=== PATIENT | female | born 1960 | race Caucasian/White ===

== ENCOUNTER 2019-10-07 10:50 | Observation (INO) ==
[2019-10-07] MEDS ORDERED: methylPREDNISolone 125 MG/2 ML VIAL IVP ONE (11:13)
[2019-10-07] MEDS ORDERED: Ipratropium/Albuterol Neb 3 ML IH ONE (11:13)
[2019-10-07] MEDS ORDERED: Isovue-370 500 ML BOTTLE IVP ONE (11:13)
[2019-10-07] MEDS ORDERED: levoFLOXacin 750 MG/150 ML 750 MG/150 ML BAG IVPB ONE (11:13)
[2019-10-07] MEDS ORDERED: 0.9 % Sodium Chloride 1,000 ML IVC ONE ×3 (12:00→17:00)
[2019-10-07 12:02] LABS: Hematocrit 40.3 % (35.3-44.9); Hemoglobin 12.9 g/dL (11.5-15.4); Mean Corpuscular Hemoglobin 28.7 pg (28.0-33.3); Mean Corpuscular Volume 89.6 fL (83.0-100.0); Mean Platelet Volume 10.2 fL (9.4-12.4); Platelet Count 222 K/mcL (140-400); Red Cell Distribution Width 15.5 % (11.5-14.5); White Blood Count 11.8 K/mcL (4.3-11.1)
[2019-10-07 12:08] LABS: INR 1.5
[2019-10-07 12:11] LABS: Activated Partial Thrombo Time 30.9 Seconds (26.0-36.0)
[2019-10-07 12:22] LABS: Calcium 9.3 mg/dL (8.6-10.3); Potassium 3.7 mEq/L (3.5-5.1)
[2019-10-07 12:24] LABS: Lymphocytes # 1.2 K/mcL (0.6-4.6); Monocytes # 0.2 K/mcL (0.0-1.3); Neutrophils # 10.4 K/mcL (1.6-8.9)
[2019-10-07 12:26] LABS: Anisocytosis 1+ (Not Present); Platelet Estimate Normal (Normal)
[2019-10-07 12:31] LABS: Bilirubin,Urine Small (Negative); Blood,Urine Negative (Negative); Clarity,Urine Cloudy (Clear); Color,Urine Dark Yellow (Yellow); Glucose,Urine (UA) Normal (Normal); Ketones,Urine Negative (Negative); Leukocyte Esterase,Urine Negative (Negative); Nitrite,Urine Negative (Negative); Protein,Urine 30 mg/dL (Neg-Trace); Specific Gravity,Urine 1.022 (1.010-1.025); Urobilinogen,Urine Normal (Normal)
[2019-10-07 12:33] LABS: Bacteria,Urine Few per hpf (None-Few); Hyaline Casts,Urine None Seen per lpf (None-Few); RBC,Urine 0-3 per hpf (0-3); Squamous Epithelial Cell,Urine Many per lpf (None-Few)
[2019-10-07 12:39] LABS: Magnesium 1.8 mg/dL (1.6-2.6)
[2019-10-07] MEDS ORDERED: *HR* FentaNYL (PF) 100 MCG/2 ML VIAL IVP STA (12:41)
[2019-10-07 12:42] LABS: Troponin I 0.03 ng/mL (< 0.04)
[2019-10-07 12:44] LABS: Amorphous Sediment,Urine Few per hpf (Few)
[2019-10-07 12:45] LABS: WBC,Urine 0-3 per hpf (0-3)
[2019-10-07] MEDS ORDERED: Ondansetron 4 MG/2 ML VIAL IVP PRN (14:54)
[2019-10-07] MEDS ORDERED: Naloxone 0.4 MG/ML INJ IVP PRN (14:54)
[2019-10-07] MEDS: ALPRAZolam 0.5 MG TABLET PO SCH ×2 (17:00→20:08)
[2019-10-07] MEDS: cefTRIAXone 1,000 MG in Water for inj. (sterile) 10 ML IVP SCH (17:02)
[2019-10-07] MEDS: 0.9 % Sodium Chloride 1,000 ML IVC SCH (18:17)
[2019-10-07] MEDS: Azithromycin 500 MG in 0.9 % Sodium Chloride 250 ML IVPB SCH (18:21)
[2019-10-07] MEDS ORDERED: Budesonide Neb 0.5 MG/2 ML IH ONE (19:47)
[2019-10-07] MEDS: Budesonide Neb 0.5 MG/2 ML IH SCH (19:56)
[2019-10-07] MEDS: *HR* Heparin 5,000 UNIT/ML VIAL SQ SCH (20:06)
[2019-10-07] MEDS: Gabapentin 100 MG CAPSULE PO SCH (20:07)
[2019-10-07] MEDS: Famotidine 20 MG TABLET PO SCH (20:07)
[2019-10-07] MEDS: Carisoprodol 350 MG TABLET PO SCH (20:56)
[2019-10-07] MEDS ORDERED: Mirtazapine 15 MG TABLET PO SCH (21:00)
[2019-10-07] MEDS: Acetaminophen 325 MG TABLET PO PRN (21:16)
[2019-10-08 04:40] LABS: Basophils % 0.1 %; Hematocrit 32.6 % (35.3-44.9); Immature Granulocytes % 1.2 % (0-4); Lymphocytes % 12.1 %; Mean Corpuscular HGB Conc 31.6 g/dL (31.6-35.5); Mean Corpuscular Hemoglobin 28.4 pg (28.0-33.3); Mean Corpuscular Volume 89.8 fL (83.0-100.0); Mean Platelet Volume 10.8 fL (9.4-12.4); Monocytes # 0.7 K/mcL (0.0-1.3); Monocytes % 7.8 %; Platelet Count 181 K/mcL (140-400); Red Blood Count 3.63 M/mcL (3.82-4.97); Red Cell Distribution Width 15.7 % (11.5-14.5); Segmented Neutrophils % 78.8 %; White Blood Count 8.3 K/mcL (4.3-11.1)
[2019-10-08] MEDS: Ipratropium/Albuterol Neb 3 ML IH PRN ×2 (04:55→07:04)
[2019-10-08] MEDS: 0.9 % Sodium Chloride 1,000 ML IVC SCH (04:55)
[2019-10-08] MEDS: *HR* Heparin 5,000 UNIT/ML VIAL SQ SCH ×2 (04:55→12:54)
[2019-10-08 05:01] LABS: Calcium 8.8 mg/dL (8.6-10.3); Potassium 4.2 mEq/L (3.5-5.1)
[2019-10-08 05:02] LABS: Hemoglobin 10.3 g/dL (11.5-15.4); Neutrophils # 6.5 K/mcL (1.6-8.9)
[2019-10-08] MEDS: Budesonide Neb 0.5 MG/2 ML IH SCH ×2 (07:04→22:22)
[2019-10-08] MEDS ORDERED: Aspirin Enteric Coated 81 MG Tablet PO SCH (09:00)
[2019-10-08] MEDS: Carisoprodol 350 MG TABLET PO SCH ×2 (10:02→17:20)
[2019-10-08] MEDS: ALPRAZolam 0.5 MG TABLET PO SCH ×3 (10:02→17:20)
[2019-10-08] MEDS: Gabapentin 100 MG CAPSULE PO SCH ×2 (10:02→17:20)
[2019-10-08] MEDS: Famotidine 20 MG TABLET PO SCH (10:02)
[2019-10-08] MEDS: cefTRIAXone 1,000 MG in Water for inj. (sterile) 10 ML IVP SCH (10:02)
[2019-10-08 10:48] LABS: Acinetobacter baumannii by PCR Not Detected (Not Detect); Candida albicans by PCR Not Detected (Not Detect); Candida glabrata by PCR Not Detected (Not Detect); Candida krusei by PCR Not Detected (Not Detect); Enterobacter cloacae Cmplx PCR Not Detected (Not Detect); Enterobacteriaceae by PCR Not Detected (Not Detect); Enterococcus by PCR Not Detected (Not Detect); Escherichia coli by PCR Not Detected (Not Detect); Klebsiella oxytoca by PCR Not Detected (Not Detect); Klebsiella pneumoniae by PCR Not Detected (Not Detect); Proteus by PCR Not Detected (Not Detect); Pseudomonas aeruginosa by PCR Not Detected (Not Detect); Serratia marcescens by PCR Not Detected (Not Detect); Staphylococcus aureus by PCR Not Detected (Not Detect); Staphylococcus by PCR Not Detected (Not Detect); Streptococcus agalactiae(B)PCR Not Detected (Not Detect); Streptococcus by PCR Not Detected (Not Detect); Streptococcus pneumoniae PCR Not Detected (Not Detect); Streptococcus pyogenes (A) PCR Not Detected (Not Detect); blaKPC Carbapenem-Resist Gene Not Detected (Not Detect); mecA Methicillin-Resist Gene Not Detected (Not Detect); vanA/B Vancomycin-Resist Genes Not Detected (Not Detect)
[2019-10-08 10:49] LABS: Candida parapsilosis by PCR Not Detected (Not Detect); Candida tropicalis by PCR Not Detected (Not Detect)
[2019-10-08] MEDS: Acetaminophen 325 MG TABLET PO PRN (12:53)
[2019-10-08] MEDS: MethylPREDNISolone 40 MG/ML VIAL IVP SCH ×2 (17:19→17:36)
[2019-10-08] MEDS: Azithromycin 500 MG in 0.9 % Sodium Chloride 250 ML IVPB SCH (17:20)
[2019-10-08] MEDS ORDERED: cefTRIAXone 1,000 MG in Water for inj. (sterile) 10 ML IVPB ONE (17:54)
[2019-10-08] MEDS ORDERED: Isovue-370 500 ML BOTTLE IVP ONE ×2 (19:01→19:02)
[2019-10-08] MEDS ORDERED: *HR* Acetylcysteine 20% 600 MG/3 ML ORAL SYRINGE PO SCH (19:45)
[2019-10-08 19:49] LABS: ABG Base Excess -2 mEq/L (-2 to 3); ABG HCO3 25 mEq/L (21-27); ABG Oxygen Saturation 96 % (95-98); ABG PCO2 49 mmHg (35-45); ABG PH 7.31 pH Units (7.32-7.45); ABG PO2 87 mmHg (85-104); ABG TCO2 26 mEq/L (20-26); Blood Gas Modality ASSIST CONTROL
[2019-10-08 23:58] VITALS: BP 126/51
[2019-10-09] MEDS ORDERED: cefTRIAXone 2,000 MG in Water for inj. (sterile) 20 ML IVP SCH (09:00)
[2019-10-09] MEDS ORDERED: Famotidine 20 MG TABLET PO SCH (09:00)
== END 2019-10-08 20:40 | disposition critical access hospital (66) ==
LOC: EMEROOARM 10:50 → 3ANU 10:50 → SUATTDRO 14:38 → 3ANU 15:21
PROVIDERS: ADMIT Pharmacist; ATTEND Pharmacist

== ENCOUNTER 2021-01-29 22:59 | Inpatient (IN) ==
[2021-01-30] MEDS ORDERED: Ipratropium/Albuterol Neb 3 ML IH ONE (00:21)
[2021-01-30] MEDS ORDERED: methylPREDNISolone 125 MG/2 ML VIAL IVP ONE (00:21)
[2021-01-30 01:33] LABS: Basophils % 0.2 %; Hematocrit 45.5 % (35.3-44.9); Hemoglobin 14.1 g/dL (11.5-15.4); Immature Granulocytes % 0.6 % (0-4); Lymphocytes # 2.2 K/mcL (0.6-4.6); Lymphocytes % 13.9 %; Mean Corpuscular Hemoglobin 27.3 pg (28.0-33.3); Mean Corpuscular Volume 88.2 fL (83.0-100.0); Mean Platelet Volume 10.3 fL (9.4-12.4); Monocytes # 0.5 K/mcL (0.0-1.3); Monocytes % 3.1 %; Neutrophils # 13.2 K/mcL (1.6-8.9); Platelet Count 265 K/mcL (140-400); Red Blood Count 5.16 M/mcL (3.82-4.97); Red Cell Distribution Width 15.6 % (11.5-14.5); Segmented Neutrophils % 82.2 %; White Blood Count 16.1 K/mcL (4.3-11.1)
[2021-01-30 02:52] LABS: Calcium 9.1 mg/dL (8.6-10.3); Troponin I 0.03 ng/mL (< 0.04)
[2021-01-30] MEDS ORDERED: Isovue-370 500 ML BOTTLE IVP ONE (03:20)
[2021-01-30 05:11] LABS: Adenovirus Not Detected (Not Detect); Bordetella Pertussis Not Detected (Not Detect); Chlamydophila pneumoniae Not Detected (Not Detect); Coronavirus 229E Not Detected (Not Detect); Coronavirus HKU1 Not Detected (Not Detect); Coronavirus NL63 Not Detected (Not Detect); Coronavirus OC43 Not Detected (Not Detect); Human Metapneumovirus Not Detected (Not Detect); Human Rhinovirus/Enterovirus Not Detected (Not Detect); Influenza A Subtype 2009 H1 Not Detected (Not Detect); Influenza B Not Detected (Not Detect); Mycoplasma pneumoniae Not Detected (Not Detect); Parainfluenza Virus 1 Not Detected (Not Detect); Parainfluenza Virus 2 Not Detected (Not Detect); Parainfluenza Virus 3 Not Detected (Not Detect); Parainfluenza Virus 4 Not Detected (Not Detect); Respiratory Syncytial Virus Not Detected (Not Detect); SARS-CoV-2 Not Detected (Not Detect)
[2021-01-30] MEDS ORDERED: cefTRIAXone 1,000 MG in 0.9 % Sodium Chloride Mini Bag 100 ML IVPB ONE (07:13)
[2021-01-30] MEDS ORDERED: Azithromycin 500 MG in 0.9 % Sodium Chloride 250 ML IVPB ONE (07:13)
[2021-01-30] MEDS ORDERED: Ondansetron 4 MG/2 ML VIAL IVP PRN (09:00)
[2021-01-30] MEDS ORDERED: Naloxone 0.4 MG/ML INJ IVP PRN (09:00)
[2021-01-30] MEDS ORDERED: 0.9 % Sodium Chloride 1,000 ML IVC SCH (09:15)
[2021-01-30] MEDS ORDERED: *HR* Enoxaparin 150 MG/ML SYRINGE SQ SCH (09:30)
[2021-01-30 09:33] LABS: Prothrombin Time 11.4 Seconds (9.4-12.1)
[2021-01-30] MEDS: Albuterol 2.5 MG/3 ML NEBULIZER IH SCH ×4 (11:17→23:28)
[2021-01-30] MEDS ORDERED: Famotidine 20 MG TABLET PO PRN (13:58)
[2021-01-30] MEDS ORDERED: Sennosides 8.6 MG TABLET PO PRN (13:58)
[2021-01-30] MEDS: Aspirin Enteric Coated 81 MG Tablet PO SCH (15:21)
[2021-01-30] MEDS: Gabapentin 100 MG CAPSULE PO SCH ×2 (15:21→20:52)
[2021-01-30] MEDS: QUEtiapine Fumarate 25 MG TABLET PO SCH (20:52)
[2021-01-30] MEDS: Primidone 50 MG TABLET PO SCH (20:52)
[2021-01-30] MEDS: Mirtazapine 15 MG TABLET PO SCH (20:52)
[2021-01-30] MEDS: Melatonin 3 MG TABLET PO SCH (20:53)
[2021-01-30] MEDS: Apixaban 5 MG TABLET PO SCH (21:07)
[2021-01-31 02:15] LABS: White Blood Count 17.9 K/mcL (4.3-11.1)
[2021-01-31 02:16] LABS: Basophils % 0.2 %; Hematocrit 38.4 % (35.3-44.9); Immature Granulocytes % 0.6 % (0-4); Lymphocytes % 11.4 %; Mean Corpuscular HGB Conc 30.7 g/dL (31.6-35.5); Mean Corpuscular Hemoglobin 26.9 pg (28.0-33.3); Mean Corpuscular Volume 87.7 fL (83.0-100.0); Mean Platelet Volume 9.8 fL (9.4-12.4); Monocytes # 0.8 K/mcL (0.0-1.3); Monocytes % 4.6 %; Neutrophils # 14.9 K/mcL (1.6-8.9); Platelet Count 209 K/mcL (140-400); Red Blood Count 4.38 M/mcL (3.82-4.97); Red Cell Distribution Width 15.7 % (11.5-14.5); Segmented Neutrophils % 83.2 %
[2021-01-31 02:23] LABS: Hemoglobin 11.8 g/dL (11.5-15.4)
[2021-01-31 02:35] LABS: Calcium 8.9 mg/dL (8.6-10.3); Potassium 4.9 mEq/L (3.5-5.1)
[2021-01-31] MEDS: Albuterol 2.5 MG/3 ML NEBULIZER IH SCH ×2 (03:55→07:22)
[2021-01-31] MEDS ORDERED: Ipratropium/Albuterol Neb 3 ML IH PRN (08:10)
[2021-01-31] MEDS ORDERED: Benzonatate 100 MG CAPSULE PO PRN (08:10)
[2021-01-31] MEDS ORDERED: MethylPREDNISolone 40 MG/ML VIAL IVP SCH (09:00)
[2021-01-31] MEDS: Apixaban 5 MG TABLET PO SCH ×2 (09:02→20:28)
[2021-01-31] MEDS: Aspirin Enteric Coated 81 MG Tablet PO SCH (09:02)
[2021-01-31] MEDS: Doxycycline 100 MG CAPSULE PO SCH ×2 (09:02→20:28)
[2021-01-31] MEDS: Gabapentin 100 MG CAPSULE PO SCH ×3 (09:03→20:28)
[2021-01-31] MEDS: Multivit/Ca/Min/Fe/FA 1 TAB TABLET PO SCH (09:03)
[2021-01-31] MEDS: cefTRIAXone 1,000 MG in Water for inj. (sterile) 10 ML IVP SCH (09:10)
[2021-01-31] MEDS ORDERED: Ipratropium/Albuterol Neb 3 ML IH ONE (09:18)
[2021-01-31] MEDS ORDERED: methylPREDNISolone 125 MG/2 ML VIAL IVP ONE (09:19)
[2021-01-31] MEDS ORDERED: Levalbuterol Neb 1.25 MG/3 ML IH ONE (09:28)
[2021-01-31] MEDS ORDERED: Ipratropium/Albuterol Neb 3 ML IH SCH ×2 (09:30→10:00)
[2021-01-31 09:32] LABS: ABG Base Excess 0 mEq/L (-2 to 3); ABG HCO3 30 mEq/L (21-27); ABG Oxygen Saturation 96 % (95-98); ABG PCO2 74 mmHg (35-45); ABG PH 7.22 pH Units (7.32-7.45); ABG PO2 98 mmHg (85-104); ABG TCO2 32 mEq/L (20-26)
[2021-01-31] MEDS ORDERED: Levalbuterol Neb 1.25 MG/3 ML ONE (09:35)
[2021-01-31 09:50] LABS: Hemoglobin 13.8 g/dL (11.5-15.4)
[2021-01-31] MEDS ORDERED: Azithromycin 500 MG in 0.9 % Sodium Chloride 250 ML IVPB SCH (10:00)
[2021-01-31 10:07] LABS: Magnesium 2.1 mg/dL (1.6-2.6)
[2021-01-31 10:08] LABS: Troponin I 0.03 ng/mL (< 0.04)
[2021-01-31] MEDS: Furosemide 20 MG/2 ML VIAL IVP SCH (10:31)
[2021-01-31] MEDS: Ipratropium Neb 0.5 MG NEBULIZER IH SCH ×4 (11:14→23:03)
[2021-01-31] MEDS: Budesonide/Formoterol 160/4.5 1 PUFF INH IH SCH ×2 (11:14→20:03)
[2021-01-31] MEDS: Levalbuterol Neb 1.25 MG/3 ML IH SCH ×4 (11:14→23:04)
[2021-01-31 11:47] LABS: ABG Base Excess 0 mEq/L (-2 to 3); ABG HCO3 28 mEq/L (21-27); ABG Oxygen Saturation 96 % (95-98); ABG PCO2 56 mmHg (35-45); ABG PO2 89 mmHg (85-104); ABG TCO2 29 mEq/L (20-26)
[2021-01-31] MEDS ORDERED: methylPREDNISolone 125 MG/2 ML VIAL IVP SCH (12:00)
[2021-01-31] MEDS ORDERED: Acetaminophen 325 MG TABLET PO PRN (12:56)
[2021-01-31] MEDS ORDERED: Perflutren Lipid Microsphere 1.3 ML in 0.9 % Sodium Chloride 8.7 ML IVP PRN (15:41)
[2021-01-31] MEDS ORDERED: Saline Nasal Spray 44 ML BOTTLE NS PRN (15:50)
[2021-01-31] MEDS: Acetylcysteine 10% 2 ML INHSOL IH SCH ×2 (16:34→23:04)
[2021-01-31] MEDS: Azithromycin 250 MG TABLET PO SCH (17:31)
[2021-01-31] MEDS: methylPREDNISolone 125 MG/2 ML VIAL IVP SCH (17:33)
[2021-01-31 18:29] LABS: Bilirubin,Urine Negative (Negative); Blood,Urine Negative (Negative); Clarity,Urine Clear (Clear); Color,Urine Colorless (Yellow); Glucose,Urine (UA) Normal (Normal); Ketones,Urine Negative (Negative); Leukocyte Esterase,Urine Negative (Negative); Nitrite,Urine Negative (Negative); Protein,Urine Negative (Neg-Trace); Specific Gravity,Urine 1.014 (1.010-1.025); Urobilinogen,Urine Normal (Normal)
[2021-01-31] MEDS: Melatonin 3 MG TABLET PO SCH (20:27)
[2021-01-31] MEDS: Sennosides/Docusate Sodium TABLET PO SCH (20:28)
[2021-01-31 20:29] LABS: Chol/HDL Ratio 2.3 (0-4.9)
[2021-01-31] MEDS: Mirtazapine 15 MG TABLET PO SCH (20:29)
[2021-01-31] MEDS: Primidone 50 MG TABLET PO SCH (20:29)
[2021-01-31] MEDS: QUEtiapine Fumarate 25 MG TABLET PO SCH (20:29)
[2021-01-31] MEDS: Artificial Tears SOLN 15 ML BOTTLE BOTH EYES SCH (20:30)
[2021-01-31 20:43] LABS: Thyroid Stimulating Hormone 0.361 mcIU/mL (0.340-5.600)
[2021-01-31 21:11] LABS: Estimated Average Glucose 131 mg/dl; Hemoglobin A1C 6.2 %
[2021-02-01] MEDS: methylPREDNISolone 125 MG/2 ML VIAL IVP SCH ×2 (00:12→08:58)
[2021-02-01] MEDS: Levalbuterol Neb 1.25 MG/3 ML IH SCH ×6 (03:32→23:02)
[2021-02-01] MEDS: Ipratropium Neb 0.5 MG NEBULIZER IH SCH ×6 (03:32→23:02)
[2021-02-01 06:21] LABS: Basophils % 0.1 %; Hematocrit 38.2 % (35.3-44.9); Hemoglobin 11.7 g/dL (11.5-15.4); Immature Granulocytes % 0.6 % (0-4); Mean Corpuscular HGB Conc 30.6 g/dL (31.6-35.5); Mean Corpuscular Hemoglobin 26.7 pg (28.0-33.3); Mean Platelet Volume 10.1 fL (9.4-12.4); Monocytes # 0.3 K/mcL (0.0-1.3); Neutrophils # 11.1 K/mcL (1.6-8.9); Platelet Count 205 K/mcL (140-400); Red Blood Count 4.39 M/mcL (3.82-4.97); Red Cell Distribution Width 15.9 % (11.5-14.5); Segmented Neutrophils % 89.3 %; White Blood Count 12.5 K/mcL (4.3-11.1)
[2021-02-01 06:35] LABS: Albumin 3.7 g/dL (3.5-5.7); Albumin/Globulin Ratio 1.5 (1.1-2.2); Bilirubin,Total 0.4 mg/dL (0.3-1.0); Globulin 2.5 g/dL (2.4-3.5); Magnesium 2.2 mg/dL (1.6-2.6); Phosphorous 3.9 mg/dL (2.7-4.5); Potassium 4.7 mEq/L (3.5-5.1); Total Protein 6.2 g/dL (6.4-8.9)
[2021-02-01] MEDS: Acetylcysteine 10% 2 ML INHSOL IH SCH ×3 (07:30→23:02)
[2021-02-01] MEDS: Budesonide/Formoterol 160/4.5 1 PUFF INH IH SCH ×2 (07:30→19:55)
[2021-02-01] MEDS: Artificial Tears SOLN 15 ML BOTTLE BOTH EYES SCH ×2 (09:01→20:38)
[2021-02-01] MEDS: Aspirin Enteric Coated 81 MG Tablet PO SCH (09:01)
[2021-02-01] MEDS: Gabapentin 100 MG CAPSULE PO SCH ×3 (09:02→20:37)
[2021-02-01] MEDS: Apixaban 5 MG TABLET PO SCH ×2 (09:02→20:37)
[2021-02-01] MEDS: Doxycycline 100 MG CAPSULE PO SCH ×2 (09:02→20:36)
[2021-02-01] MEDS: Furosemide 20 MG/2 ML VIAL IVP SCH (09:02)
[2021-02-01] MEDS: Multivit/Ca/Min/Fe/FA 1 TAB TABLET PO SCH (09:03)
[2021-02-01] MEDS: Azithromycin 250 MG TABLET PO SCH (09:03)
[2021-02-01] MEDS: Sennosides/Docusate Sodium TABLET PO SCH ×2 (09:03→20:35)
[2021-02-01] MEDS: cefTRIAXone 1,000 MG in Water for inj. (sterile) 10 ML IVP SCH (09:10)
[2021-02-01 15:10] LABS: Hematocrit 39.4 % (35.3-44.9); Hemoglobin 12.4 g/dL (11.5-15.4)
[2021-02-01] MEDS: MethylPREDNISolone 40 MG/ML VIAL IVP SCH ×2 (15:11→23:07)
[2021-02-01] MEDS: Melatonin 3 MG TABLET PO SCH (20:35)
[2021-02-01] MEDS: QUEtiapine Fumarate 25 MG TABLET PO SCH (20:36)
[2021-02-01] MEDS: Primidone 50 MG TABLET PO SCH (20:36)
[2021-02-01] MEDS: Mirtazapine 15 MG TABLET PO SCH (20:36)
[2021-02-02 01:33] LABS: Basophils % 0.1 %; Hematocrit 37.8 % (35.3-44.9); Hemoglobin 11.8 g/dL (11.5-15.4); Immature Granulocytes % 0.7 % (0-4); Lymphocytes # 1.1 K/mcL (0.6-4.6); Lymphocytes % 9.1 %; Mean Corpuscular HGB Conc 31.2 g/dL (31.6-35.5); Mean Corpuscular Hemoglobin 26.9 pg (28.0-33.3); Mean Corpuscular Volume 86.3 fL (83.0-100.0); Mean Platelet Volume 10.4 fL (9.4-12.4); Monocytes # 0.4 K/mcL (0.0-1.3); Monocytes % 3.4 %; Neutrophils # 10.9 K/mcL (1.6-8.9); Platelet Count 231 K/mcL (140-400); Red Blood Count 4.38 M/mcL (3.82-4.97); Red Cell Distribution Width 15.8 % (11.5-14.5); Segmented Neutrophils % 86.7 %; White Blood Count 12.6 K/mcL (4.3-11.1)
[2021-02-02 01:57] LABS: Albumin 3.7 g/dL (3.5-5.7); Albumin/Globulin Ratio 1.3 (1.1-2.2); Bilirubin,Total 0.4 mg/dL (0.3-1.0); Calcium 9.2 mg/dL (8.6-10.3); Globulin 2.8 g/dL (2.4-3.5); Magnesium 2.2 mg/dL (1.6-2.6); Phosphorous 4.1 mg/dL (2.7-4.5); Potassium 4.8 mEq/L (3.5-5.1); Total Protein 6.5 g/dL (6.4-8.9)
[2021-02-02] MEDS: Levalbuterol Neb 1.25 MG/3 ML IH SCH ×4 (03:56→15:07)
[2021-02-02] MEDS: Ipratropium Neb 0.5 MG NEBULIZER IH SCH ×4 (03:56→15:07)
[2021-02-02 05:41] LABS: ABG Base Excess 2 mEq/L (-2 to 3); ABG HCO3 28 mEq/L (21-27); ABG Oxygen Saturation 92 % (95-98); ABG PCO2 49 mmHg (35-45); ABG PH 7.36 pH Units (7.32-7.45); ABG PO2 66 mmHg (85-104); ABG TCO2 29 mEq/L (20-26)
[2021-02-02] MEDS ORDERED: MethylPREDNISolone 40 MG/ML VIAL IVP SCH (07:45)
[2021-02-02] MEDS: Sennosides/Docusate Sodium TABLET PO SCH (07:59)
[2021-02-02] MEDS: Multivit/Ca/Min/Fe/FA 1 TAB TABLET PO SCH (07:59)
[2021-02-02] MEDS: Aspirin Enteric Coated 81 MG Tablet PO SCH (07:59)
[2021-02-02] MEDS: Gabapentin 100 MG CAPSULE PO SCH (08:00)
[2021-02-02] MEDS: Apixaban 5 MG TABLET PO SCH (08:00)
[2021-02-02] MEDS: Azithromycin 250 MG TABLET PO SCH (08:00)
[2021-02-02] MEDS: Doxycycline 100 MG CAPSULE PO SCH (08:00)
[2021-02-02] MEDS: Furosemide 20 MG/2 ML VIAL IVP SCH (08:01)
[2021-02-02] MEDS: cefTRIAXone 1,000 MG in Water for inj. (sterile) 10 ML IVP SCH (08:01)
[2021-02-02] MEDS: Artificial Tears SOLN 15 ML BOTTLE BOTH EYES SCH (08:24)
[2021-02-02] MEDS: Acetylcysteine 10% 2 ML INHSOL IH SCH ×2 (08:32→15:07)
[2021-02-02] MEDS: Budesonide/Formoterol 160/4.5 1 PUFF INH IH SCH (08:32)
[2021-02-02 11:41] VITALS: BP 131/70
[2021-02-02] MEDS ORDERED: Acetaminophen 325 MG TABLET PO PRN (15:11)
== END 2021-02-02 16:15 | disposition home or self-care (01) | DRG 871 ==
LOC: EMEROOARM 22:59 → 2NENU 22:59 → SUATTDRO 01-30 09:27 → 2NENU 01-30 10:35
PROVIDERS: ADMIT Internal Medicine; ATTEND Internal Medicine

== ENCOUNTER 2021-03-17 17:33 | Observation (INO) ==
[2021-03-17] MEDS ORDERED: Isovue-370 500 ML BOTTLE IVP ONE (17:54)
[2021-03-17] MEDS ORDERED: Morphine Sulfate Immed Rel 15 MG TABLET PO STA (17:57)
[2021-03-17 18:30] LABS: Basophils # 0.1 K/mcL (0.0-0.2); Basophils % 0.6 %; Eosinophils # 0.1 K/mcL (0.0-0.6); Eosinophils % 0.8 %; Hematocrit 38.3 % (35.3-44.9); Immature Granulocytes % 0.4 % (0-4); Lymphocytes # 2.8 K/mcL (0.6-4.6); Lymphocytes % 24.4 %; Mean Corpuscular HGB Conc 31.3 g/dL (31.6-35.5); Mean Corpuscular Volume 86.3 fL (83.0-100.0); Mean Platelet Volume 9.8 fL (9.4-12.4); Monocytes # 0.7 K/mcL (0.0-1.3); Neutrophils # 7.7 K/mcL (1.6-8.9); Platelet Count 254 K/mcL (140-400); Red Blood Count 4.44 M/mcL (3.82-4.97); Red Cell Distribution Width 16.3 % (11.5-14.5); Segmented Neutrophils % 67.8 %; White Blood Count 11.4 K/mcL (4.3-11.1)
[2021-03-17 18:38] LABS: INR 1.1; Prothrombin Time 12.5 Seconds (9.4-12.1)
[2021-03-17 18:41] LABS: Activated Partial Thrombo Time 30.1 Seconds (26.0-36.0)
[2021-03-17 18:48] LABS: Calcium 9.4 mg/dL (8.6-10.3); Potassium 3.6 mEq/L (3.5-5.1)
[2021-03-17] MEDS ORDERED: Ondansetron 4 MG/2 ML VIAL IVP PRN (22:18)
[2021-03-17] MEDS ORDERED: Melatonin 3 MG TABLET PO PRN (22:18)
[2021-03-17] MEDS ORDERED: Naloxone 0.4 MG/ML INJ IVP PRN (22:18)
[2021-03-18 05:36] LABS: Hematocrit 33.8 % (35.3-44.9); Hemoglobin 10.6 g/dL (11.5-15.4); Mean Corpuscular HGB Conc 31.4 g/dL (31.6-35.5); Mean Corpuscular Hemoglobin 26.9 pg (28.0-33.3); Mean Corpuscular Volume 85.8 fL (83.0-100.0); Mean Platelet Volume 9.4 fL (9.4-12.4); Platelet Count 215 K/mcL (140-400); Red Blood Count 3.94 M/mcL (3.82-4.97); Red Cell Distribution Width 16.4 % (11.5-14.5); White Blood Count 10.2 K/mcL (4.3-11.1)
[2021-03-18] MEDS: Acetaminophen 325 MG TABLET PO PRN ×2 (05:47→12:42)
[2021-03-18 06:02] LABS: Calcium 9.1 mg/dL (8.6-10.3); Potassium 3.8 mEq/L (3.5-5.1)
[2021-03-18 17:28] LABS: Hematocrit 33.5 % (35.3-44.9); Hemoglobin 10.7 g/dL (11.5-15.4)
[2021-03-18] MEDS ORDERED: Famotidine 20 MG TABLET PO PRN (17:58)
[2021-03-18] MEDS: Mirtazapine 15 MG TABLET PO SCH (20:35)
[2021-03-18] MEDS: Gabapentin 100 MG CAPSULE PO SCH (20:35)
[2021-03-18] MEDS: QUEtiapine Fumarate 25 MG TABLET PO SCH (20:35)
[2021-03-18] MEDS: Primidone 50 MG TABLET PO SCH (20:36)
[2021-03-18] MEDS: *HR* HYDROcodone/Acet 5/325 mg TABLET PO PRN (20:40)
[2021-03-18] MEDS: Budesonide/Formoterol 160/4.5 1 PUFF INH IH SCH (21:54)
[2021-03-18] MEDS: Tiotropium 10 INH DOSE IH SCH (21:55)
[2021-03-19 06:10] LABS: Basophils # 0.1 K/mcL (0.0-0.2); Basophils % 0.7 %; Eosinophils # 0.1 K/mcL (0.0-0.6); Eosinophils % 0.9 %; Hematocrit 36.6 % (35.3-44.9); Hemoglobin 11.5 g/dL (11.5-15.4); Immature Granulocytes % 0.5 % (0-4); Lymphocytes # 3.4 K/mcL (0.6-4.6); Lymphocytes % 31.4 %; Mean Corpuscular HGB Conc 31.4 g/dL (31.6-35.5); Mean Corpuscular Hemoglobin 26.9 pg (28.0-33.3); Mean Corpuscular Volume 85.7 fL (83.0-100.0); Mean Platelet Volume 9.6 fL (9.4-12.4); Monocytes # 0.9 K/mcL (0.0-1.3); Monocytes % 8.4 %; Neutrophils # 6.3 K/mcL (1.6-8.9); Platelet Count 210 K/mcL (140-400); Red Blood Count 4.27 M/mcL (3.82-4.97); Red Cell Distribution Width 16.6 % (11.5-14.5); Segmented Neutrophils % 58.1 %; White Blood Count 10.8 K/mcL (4.3-11.1)
[2021-03-19 06:24] LABS: Platelet Estimate Normal (Normal); Reactive Lymphocytes Present (Not Present)
[2021-03-19] MEDS: Tiotropium 10 INH DOSE IH SCH ×2 (07:19→19:58)
[2021-03-19] MEDS: Budesonide/Formoterol 160/4.5 1 PUFF INH IH SCH ×2 (07:19→19:58)
[2021-03-19 07:48] LABS: Calcium 9.3 mg/dL (8.6-10.3); Potassium 4.1 mEq/L (3.5-5.1)
[2021-03-19] MEDS: Gabapentin 100 MG CAPSULE PO SCH ×3 (08:40→19:48)
[2021-03-19] MEDS: Mirtazapine 15 MG TABLET PO SCH (19:48)
[2021-03-19] MEDS: *HR* HYDROcodone/Acet 5/325 mg TABLET PO PRN (19:48)
[2021-03-19] MEDS: QUEtiapine Fumarate 25 MG TABLET PO SCH (19:48)
[2021-03-19] MEDS: Primidone 50 MG TABLET PO SCH (19:48)
[2021-03-20 05:32] LABS: Hematocrit 34.1 % (35.3-44.9); Hemoglobin 10.8 g/dL (11.5-15.4); Mean Corpuscular HGB Conc 31.7 g/dL (31.6-35.5); Mean Corpuscular Hemoglobin 27.3 pg (28.0-33.3); Mean Corpuscular Volume 86.3 fL (83.0-100.0); Mean Platelet Volume 9.4 fL (9.4-12.4); Platelet Count 221 K/mcL (140-400); Red Blood Count 3.95 M/mcL (3.82-4.97); Red Cell Distribution Width 16.5 % (11.5-14.5); White Blood Count 8.5 K/mcL (4.3-11.1)
[2021-03-20 05:54] LABS: Calcium 8.8 mg/dL (8.6-10.3)
[2021-03-20] MEDS: Gabapentin 100 MG CAPSULE PO SCH ×3 (09:11→19:45)
[2021-03-20] MEDS: *HR* HYDROcodone/Acet 5/325 mg TABLET PO PRN (09:11)
[2021-03-20] MEDS: Budesonide/Formoterol 160/4.5 1 PUFF INH IH SCH ×2 (10:53→20:19)
[2021-03-20] MEDS: Tiotropium 10 INH DOSE IH SCH ×2 (10:54→20:19)
[2021-03-20] MEDS: Acetaminophen 325 MG TABLET PO PRN (12:29)
[2021-03-20] MEDS ORDERED: *HR* HYDROcodone/Acet 5/325 mg TABLET PO PRN (15:03)
[2021-03-20] MEDS: QUEtiapine Fumarate 25 MG TABLET PO SCH (19:45)
[2021-03-20] MEDS: Mirtazapine 15 MG TABLET PO SCH (19:45)
[2021-03-20] MEDS: Primidone 50 MG TABLET PO SCH (19:45)
[2021-03-21 03:21] LABS: Hematocrit 35.4 % (35.3-44.9); Hemoglobin 10.8 g/dL (11.5-15.4); Mean Corpuscular HGB Conc 30.5 g/dL (31.6-35.5); Mean Corpuscular Hemoglobin 26.6 pg (28.0-33.3); Mean Corpuscular Volume 87.2 fL (83.0-100.0); Mean Platelet Volume 10.2 fL (9.4-12.4); Platelet Count 254 K/mcL (140-400); Red Blood Count 4.06 M/mcL (3.82-4.97); White Blood Count 10.8 K/mcL (4.3-11.1)
[2021-03-21 07:21] VITALS: BP 115/69
[2021-03-21] MEDS: Gabapentin 100 MG CAPSULE PO SCH (07:56)
[2021-03-21] MEDS: Tiotropium 10 INH DOSE IH SCH (10:00)
[2021-03-21] MEDS: Budesonide/Formoterol 160/4.5 1 PUFF INH IH SCH (10:00)
== END 2021-03-21 11:13 ==
LOC: 3BNU 17:33 → EMEROOARM 17:33 → SUATTDRO 20:58 → 3BNU 21:57
PROVIDERS: ADMIT Student in an Organized Health Care Education/Training Program; ATTEND Registered Nurse

== ENCOUNTER 2021-04-03 05:14 | Observation (INO) ==
[2021-04-03] MEDS ORDERED: methylPREDNISolone 125 MG/2 ML VIAL IVP ONE (05:23)
[2021-04-03 05:45] LABS: Basophils # 0.1 K/mcL (0.0-0.2); Basophils % 0.7 %; Eosinophils # 0.1 K/mcL (0.0-0.6); Eosinophils % 0.7 %; Hematocrit 35.7 % (35.3-44.9); Hemoglobin 10.7 g/dL (11.5-15.4); Immature Granulocytes % 0.7 % (0-4); Lymphocytes # 2.1 K/mcL (0.6-4.6); Mean Corpuscular Hemoglobin 26.8 pg (28.0-33.3); Mean Corpuscular Volume 89.3 fL (83.0-100.0); Mean Platelet Volume 9.4 fL (9.4-12.4); Monocytes # 0.5 K/mcL (0.0-1.3); Monocytes % 4.5 %; Neutrophils # 8.4 K/mcL (1.6-8.9); Nucleated Red Blood Cells 0.2 /100 WBC (0); Platelet Count 323 K/mcL (140-400); Red Cell Distribution Width 18.2 % (11.5-14.5); Segmented Neutrophils % 74.4 %; White Blood Count 11.3 K/mcL (4.3-11.1)
[2021-04-03 05:49] LABS: VBG HCO3 24 mEq/L (21-27); VBG PCO2 47 mmHg (41-51); VBG PH 7.31 pH Units (7.32-7.42); VBG PO2 116 mmHg (25-50)
[2021-04-03 06:07] LABS: Alanine Aminotransferase 16 Units/L (7-52); Albumin 3.8 g/dL (3.5-5.7); Albumin/Globulin Ratio 1.3 (1.1-2.2); Alkaline Phosphatase 90 Units/L (34-104); Aspartate Amino Transferase 18 Units/L (13-39); BUN/Creatinine Ratio 10 (6-26); Bilirubin,Direct 0.1 mg/dL (0.0-0.2); Bilirubin,Indirect 0.4 mg/dL (0.0-1.0); Bilirubin,Total 0.5 mg/dL (0.3-1.0); Blood Urea Nitrogen 14 mg/dL (8-23); Calcium 8.6 mg/dL (8.6-10.3); Carbon Dioxide 22 mEq/L (23-29); Chloride 106 mEq/L (98-107); Globulin 2.9 g/dL (2.4-3.5); Glucose 251 mg/dL (70-105); Osmolality,Calculated 293 (280-300); Potassium 4.6 mEq/L (3.5-5.1); Sodium 137 mEq/L (136-145); Total Protein 6.7 g/dL (6.4-8.9); eGFR For African Americans 45 (> 60); eGFR For Non-African Americans 37 (> 60)
[2021-04-03] MEDS ORDERED: Furosemide 40 MG/4 ML VIAL IVP ONE (06:12)
[2021-04-03] MEDS ORDERED: *HR* HYDROcodone/Acet 5/325 mg TABLET PO ONE (06:29)
[2021-04-03 06:41] LABS: Adenovirus Not Detected (Not Detect); Bordetella Pertussis Not Detected (Not Detect); Chlamydophila pneumoniae Not Detected (Not Detect); Coronavirus 229E Not Detected (Not Detect); Coronavirus HKU1 Not Detected (Not Detect); Coronavirus NL63 Not Detected (Not Detect); Coronavirus OC43 Not Detected (Not Detect); Human Metapneumovirus Not Detected (Not Detect); Human Rhinovirus/Enterovirus Not Detected (Not Detect); Influenza A Subtype 2009 H1 Not Detected (Not Detect); Influenza B Not Detected (Not Detect); Mycoplasma pneumoniae Not Detected (Not Detect); Parainfluenza Virus 1 Not Detected (Not Detect); Parainfluenza Virus 2 Not Detected (Not Detect); Parainfluenza Virus 3 Not Detected (Not Detect); Parainfluenza Virus 4 Not Detected (Not Detect); Respiratory Syncytial Virus Not Detected (Not Detect); SARS-CoV-2 Not Detected (Not Detect)
[2021-04-03 06:49] LABS: Troponin I < 0.03 ng/mL (< 0.04)
[2021-04-03] MEDS ORDERED: Acetaminophen 325 MG TABLET PO PRN (07:10)
[2021-04-03] MEDS ORDERED: Ondansetron ODT 4 MG TAB.RAPDIS SL PRN (07:10)
[2021-04-03] MEDS ORDERED: *HR* Dextrose 50 % in Water (Vial) 50 ML VIAL IVP PRN (07:17)
[2021-04-03] MEDS ORDERED: D5% in Water 1,000 ML IVC PRN (07:17)
[2021-04-03] MEDS ORDERED: Dextrose Gel 15 GM/37.5 ML TUBE PO PRN ×2 (07:17)
[2021-04-03] MEDS ORDERED: Famotidine 20 MG TABLET PO PRN (07:19)
[2021-04-03] MEDS ORDERED: Perflutren Lipid Microsphere 1.3 ML in 0.9 % Sodium Chloride 8.7 ML IVP PRN (07:23)
[2021-04-03] MEDS: Ipratropium/Albuterol Neb 3 ML IH SCH ×4 (07:49→19:49)
[2021-04-03] MEDS: DilTIAZem CD (24hr) 120 MG CAP.ER.24H PO SCH (10:50)
[2021-04-03] MEDS: Aspirin Enteric Coated 81 MG Tablet PO SCH (10:50)
[2021-04-03] MEDS: Gabapentin 100 MG CAPSULE PO SCH ×3 (10:50→20:26)
[2021-04-03] MEDS: Azithromycin 500 MG in 0.9 % Sodium Chloride 250 ML IVPB SCH (10:51)
[2021-04-03] MEDS: Nicotine 21 MG PATCH.TD24 TD SCH (10:52)
[2021-04-03] MEDS: Insulin DETEMIR 100 UNIT/ML X5UNITS SUBQ SCH ×2 (10:53→11:21)
[2021-04-03] MEDS: Insulin LISPRO 300 UNITS/3 ML VIAL SUBQ SCH ×3 (10:53→16:28)
[2021-04-03 11:32] LABS: Magnesium 2.4 mg/dL (1.6-2.6)
[2021-04-03] MEDS: *HR* Heparin 5,000 UNIT/ML VIAL SQ SCH ×2 (14:24→22:20)
[2021-04-03] MEDS: Furosemide 40 MG/4 ML VIAL IVP SCH ×2 (14:25→20:35)
[2021-04-03] MEDS: MethylPREDNISolone 40 MG/ML VIAL IVP SCH (17:27)
[2021-04-03] MEDS ORDERED: QUEtiapine Fumarate 25 MG TABLET PO SCH (21:00)
[2021-04-03] MEDS ORDERED: Mirtazapine 15 MG TABLET PO SCH (21:00)
[2021-04-03] MEDS ORDERED: Primidone 50 MG TABLET PO SCH (21:00)
[2021-04-03] MEDS ORDERED: Insulin LISPRO 300 UNITS/3 ML VIAL SUBQ SCH (21:00)
[2021-04-04] MEDS: Ipratropium/Albuterol Neb 3 ML IH SCH ×4 (00:28→10:56)
[2021-04-04 04:28] LABS: Hematocrit 34.7 % (35.3-44.9); Hemoglobin 10.4 g/dL (11.5-15.4); Mean Corpuscular Hemoglobin 26.8 pg (28.0-33.3); Mean Corpuscular Volume 89.4 fL (83.0-100.0); Mean Platelet Volume 9.9 fL (9.4-12.4); Platelet Count 316 K/mcL (140-400); Red Blood Count 3.88 M/mcL (3.82-4.97); Red Cell Distribution Width 17.8 % (11.5-14.5); White Blood Count 16.1 K/mcL (4.3-11.1)
[2021-04-04 04:47] LABS: Calcium 8.8 mg/dL (8.6-10.3); Potassium 3.9 mEq/L (3.5-5.1)
[2021-04-04] MEDS: *HR* Heparin 5,000 UNIT/ML VIAL SQ SCH (06:35)
[2021-04-04] MEDS: MethylPREDNISolone 40 MG/ML VIAL IVP SCH (06:36)
[2021-04-04] MEDS ORDERED: predniSONE 20 MG TABLET PO SCH (09:00)
[2021-04-04 09:13] VITALS: BP 93/52
[2021-04-04] MEDS: Furosemide 40 MG/4 ML VIAL IVP SCH (09:42)
[2021-04-04] MEDS: Aspirin Enteric Coated 81 MG Tablet PO SCH (09:43)
[2021-04-04] MEDS: Gabapentin 100 MG CAPSULE PO SCH (09:44)
[2021-04-04] MEDS: DilTIAZem CD (24hr) 120 MG CAP.ER.24H PO SCH (09:45)
[2021-04-04] MEDS: Azithromycin 500 MG in 0.9 % Sodium Chloride 250 ML IVPB SCH (09:46)
[2021-04-04] MEDS: Nicotine 21 MG PATCH.TD24 TD SCH (09:48)
[2021-04-04] MEDS: Insulin DETEMIR 100 UNIT/ML X5UNITS SUBQ SCH (09:57)
[2021-04-04] MEDS: Insulin LISPRO 300 UNITS/3 ML VIAL SUBQ SCH (11:05)
[2021-04-04] MEDS ORDERED: Furosemide 20 MG/2 ML VIAL IVP SCH (21:00)
== END 2021-04-04 13:06 | disposition short-term general hospital (02) ==
LOC: 3ANU 05:14 → EMEROOARM 05:14 → SUATTDRO 06:53 → 3ANU 08:45
PROVIDERS: ADMIT Internal Medicine; ATTEND Pharmacist

== ENCOUNTER 2021-05-02 18:58 | Observation (INO) ==
[2021-05-02] MEDS ORDERED: Ipratropium/Albuterol Neb 3 ML IH ONE (19:14)
[2021-05-02] MEDS ORDERED: methylPREDNISolone 125 MG/2 ML VIAL IVP ONE (19:14)
[2021-05-02 19:27] LABS: Basophils # 0.1 K/mcL (0.0-0.2); Basophils % 0.3 %; Eosinophils # 0.1 K/mcL (0.0-0.6); Eosinophils % 0.4 %; Hematocrit 26.4 % (35.3-44.9); Hemoglobin 8.1 g/dL (11.5-15.4); Immature Granulocytes % 0.9 % (0-4); Lymphocytes # 1.6 K/mcL (0.6-4.6); Mean Corpuscular HGB Conc 30.7 g/dL (31.6-35.5); Mean Platelet Volume 9.3 fL (9.4-12.4); Monocytes # 1.2 K/mcL (0.0-1.3); Monocytes % 7.9 %; Neutrophils # 12.6 K/mcL (1.6-8.9); Nucleated Red Blood Cells 0.1 /100 WBC (0); Platelet Count 605 K/mcL (140-400); Red Cell Distribution Width 16.4 % (11.5-14.5); Segmented Neutrophils % 80.5 %; White Blood Count 15.7 K/mcL (4.3-11.1)
[2021-05-02 19:49] LABS: Calcium 8.8 mg/dL (8.6-10.3); Potassium 4.8 mEq/L (3.5-5.1)
[2021-05-02 19:55] LABS: Troponin I 0.28 ng/mL (< 0.04)
[2021-05-02] MEDS ORDERED: cefTRIAXone 1,000 MG in Water for inj. (sterile) 10 ML IVP ONE (20:18)
[2021-05-02] MEDS ORDERED: Azithromycin 500 MG in 0.9 % Sodium Chloride 250 ML IVPB ONE (20:18)
[2021-05-02] MEDS ORDERED: Ondansetron 4 MG/2 ML VIAL IVP PRN (21:43)
[2021-05-02] MEDS ORDERED: Naloxone 0.4 MG/ML INJ IVP PRN (21:43)
[2021-05-02] MEDS ORDERED: Perflutren Lipid Microsphere 1.3 ML in 0.9 % Sodium Chloride 8.7 ML IVP PRN (21:46)
[2021-05-03] MEDS ORDERED: Furosemide 40 MG/4 ML VIAL IVP ONE (00:47)
[2021-05-03] MEDS: cefTRIAXone 1,000 MG in 0.9 % Sodium Chloride Mini Bag 100 ML IVPB SCH ×2 (02:06→11:29)
[2021-05-03 02:22] LABS: Hematocrit 25.8 % (35.3-44.9); Hemoglobin 8.1 g/dL (11.5-15.4); Mean Corpuscular HGB Conc 31.4 g/dL (31.6-35.5); Mean Corpuscular Hemoglobin 27.9 pg (28.0-33.3); Mean Platelet Volume 9.3 fL (9.4-12.4); Platelet Count 538 K/mcL (140-400); Red Cell Distribution Width 16.6 % (11.5-14.5)
[2021-05-03 02:43] LABS: Calcium 9.1 mg/dL (8.6-10.3)
[2021-05-03 02:49] LABS: Troponin I 0.23 ng/mL (< 0.04)
[2021-05-03 02:51] LABS: INR 2.2; Prothrombin Time 24.4 Seconds (9.4-12.1)
[2021-05-03 05:44] LABS: Folate 11.4 ng/mL (3.0-16.0)
[2021-05-03] MEDS ORDERED: Pantoprazole 40 MG VIAL IVP SCH (06:00)
[2021-05-03] MEDS ORDERED: Benzonatate 100 MG CAPSULE PO PRN (07:34)
[2021-05-03] MEDS ORDERED: Sennosides 8.6 MG TABLET PO PRN (07:34)
[2021-05-03] MEDS ORDERED: tiZANidine 4 MG TABLET PO PRN (07:34)
[2021-05-03] MEDS ORDERED: Nystatin POWDER 30 GM BOTTLE TP PRN (07:34)
[2021-05-03] MEDS ORDERED: Furosemide 40 MG/4 ML VIAL IVP SCH (09:00)
[2021-05-03] MEDS ORDERED: Azithromycin 500 MG in 0.9 % Sodium Chloride 250 ML IVPB SCH (09:00)
[2021-05-03] MEDS ORDERED: Lactobacillus 1 EACH CAP.SPRINK PO SCH (09:00)
[2021-05-03] MEDS ORDERED: Famotidine 20 MG TABLET PO SCH (09:00)
[2021-05-03] MEDS ORDERED: Aspirin Enteric Coated 81 MG Tablet PO SCH (09:00)
[2021-05-03] MEDS: Gabapentin 100 MG CAPSULE PO SCH ×2 (10:14→16:42)
[2021-05-03 11:28] VITALS: O2SAT 93
[2021-05-03] MEDS ORDERED: Perflutren Lipid Microsphere 1.3 ML in 0.9 % Sodium Chloride 8.7 ML IVP PRN (13:47)
[2021-05-03 16:04] VITALS: BP 176/85; PULSE 101; TEMP 97.9
[2021-05-03] MEDS ORDERED: Warfarin perPT PO PRN (18:00)
[2021-05-03] MEDS ORDERED: *HR* Warfarin 3 MG TABLET PO ONE (18:00)
[2021-05-03] MEDS ORDERED: Melatonin 3 MG TABLET PO SCH (21:00)
[2021-05-03] MEDS ORDERED: QUEtiapine Fumarate 25 MG TABLET PO SCH (21:00)
[2021-05-03] MEDS ORDERED: Mirtazapine 15 MG TABLET PO SCH (21:00)
[2021-05-03] MEDS ORDERED: Primidone 50 MG TABLET PO SCH (21:00)
== END 2021-05-03 17:35 | disposition short-term general hospital (02) ==
LOC: EMEROOARM 18:58 → 2NENU 18:58
PROVIDERS: ADMIT Student in an Organized Health Care Education/Training Program; ATTEND Student in an Organized Health Care Education/Training Program

== ENCOUNTER 2021-07-20 22:50 | Inpatient (IN) ==
[2021-07-20 23:07] LABS: Hematocrit 36.3 % (35.3-44.9); Hemoglobin 10.6 g/dL (11.5-15.4); Mean Corpuscular HGB Conc 29.2 g/dL (31.6-35.5); Mean Corpuscular Hemoglobin 22.3 pg (28.0-33.3); Mean Corpuscular Volume 76.4 fL (83.0-100.0); Mean Platelet Volume 9.1 fL (9.4-12.4); Platelet Count 274 K/mcL (140-400); Red Blood Count 4.75 M/mcL (3.82-4.97); Red Cell Distribution Width 19.2 % (11.5-14.5); White Blood Count 9.6 K/mcL (4.3-11.1)
[2021-07-20 23:14] LABS: INR 1.4; Prothrombin Time 15.4 Seconds (9.4-12.1)
[2021-07-20 23:17] LABS: Activated Partial Thrombo Time 44.6 Seconds (26.0-36.0)
[2021-07-20] MEDS ORDERED: Ondansetron 4 MG/2 ML VIAL ONE (23:36)
[2021-07-20] MEDS ORDERED: Ondansetron 4 MG/2 ML VIAL IVP ONE (23:38)
[2021-07-20 23:56] LABS: Calcium 9.1 mg/dL (8.6-10.3); Potassium 3.9 mEq/L (3.5-5.1)
[2021-07-21 00:10] LABS: Troponin I 0.03 ng/mL (< 0.04)
[2021-07-21] MEDS ORDERED: Morphine Sulfate 2 MG/ML SYRINGE IVP ONE ×2 (01:18→03:31)
[2021-07-21] MEDS ORDERED: *HR* Heparin 5,000 UNIT/ML VIAL IVP PRN ×4 (02:52→19:26)
[2021-07-21] MEDS ORDERED: *HR* Heparin 5,000 UNIT/ML VIAL IVP ONE (02:52)
[2021-07-21] MEDS ORDERED: Heparin 25,000UNIT/250ML 1/2NS 25,000 UNIT/250 ML IV.SOLN IVC SCH (03:00)
[2021-07-21 03:48] LABS: Heparin anti-factor XA UFH 0.67 IU/mL (0.30-0.70)
[2021-07-21 03:49] LABS: INR 1.4; Prothrombin Time 15.1 Seconds (9.4-12.1)
[2021-07-21] MEDS ORDERED: Ondansetron 4 MG/2 ML VIAL IVP PRN ×4 (04:42→19:26)
[2021-07-21] MEDS ORDERED: Acetaminophen 325 MG TABLET PO PRN ×2 (04:42→19:26)
[2021-07-21] MEDS ORDERED: Naloxone 0.4 MG/ML INJ IVP PRN ×3 (04:42→19:26)
[2021-07-21] MEDS ORDERED: Furosemide 20 MG TABLET PO PRN ×2 (04:47→19:26)
[2021-07-21] MEDS ORDERED: Isovue-370 500 ML BOTTLE IVP ONE (08:53)
[2021-07-21] MEDS ORDERED: DilTIAZem CD (24hr) 120 MG CAP.ER.24H PO SCH (09:00)
[2021-07-21] MEDS ORDERED: Gabapentin 100 MG CAPSULE PO SCH (09:00)
[2021-07-21] MEDS ORDERED: Aspirin Enteric Coated 81 MG Tablet PO SCH (09:00)
[2021-07-21 09:07] LABS: White Blood Count 9.3 K/mcL (4.3-11.1)
[2021-07-21 09:08] LABS: Basophils # 0.1 K/mcL (0.0-0.2); Basophils % 0.5 %; Eosinophils % 0.1 %; Hematocrit 35.5 % (35.3-44.9); Hemoglobin 10.6 g/dL (11.5-15.4); Immature Granulocytes % 0.2 % (0-4); Lymphocytes # 2.1 K/mcL (0.6-4.6); Lymphocytes % 22.6 %; Mean Corpuscular HGB Conc 29.9 g/dL (31.6-35.5); Mean Corpuscular Hemoglobin 23.2 pg (28.0-33.3); Mean Corpuscular Volume 77.9 fL (83.0-100.0); Mean Platelet Volume 9.8 fL (9.4-12.4); Monocytes # 0.7 K/mcL (0.0-1.3); Monocytes % 7.2 %; Neutrophils # 6.4 K/mcL (1.6-8.9); Platelet Count 259 K/mcL (140-400); Red Blood Count 4.56 M/mcL (3.82-4.97); Red Cell Distribution Width 19.1 % (11.5-14.5); Segmented Neutrophils % 69.4 %
[2021-07-21 09:24] LABS: Calcium 9.2 mg/dL (8.6-10.3); Chol/HDL Ratio 2.3 (0-4.9); Potassium 4.5 mEq/L (3.5-5.1)
[2021-07-21] MEDS ORDERED: Tiotropium 10 INH DOSE IH SCH (10:00)
[2021-07-21] MEDS ORDERED: 0.9 % Sodium Chloride 1,000 ML IVC SCH (10:00)
[2021-07-21] MEDS ORDERED: Budesonide/Formoterol 160/4.5 1 PUFF INH IH SCH (10:00)
[2021-07-21 11:22] LABS: Bilirubin,Urine Negative (Negative); Blood,Urine Negative (Negative); Clarity,Urine Clear (Clear); Color,Urine Light-Yellow (Yellow); Glucose,Urine (UA) Normal (Normal); Ketones,Urine Negative (Negative); Leukocyte Esterase,Urine Negative (Negative); Nitrite,Urine Negative (Negative); Protein,Urine Trace mg/dL (Neg-Trace); Urobilinogen,Urine Normal (Normal)
[2021-07-21] MEDS ORDERED: Heparin 1,000 UNITS/500 mL 1,000 ML ONE (14:21)
[2021-07-21] MEDS ORDERED: *HR* Norepinephrine 4 MG/4 ML VIAL IVC ONE (14:47)
[2021-07-21] MEDS ORDERED: *HR* Vasopressin 20 UNIT/ML VIAL ONE (14:48)
[2021-07-21] MEDS ORDERED: Heparin 1,000 UNITS/500 mL 500 ML ONE (14:50)
[2021-07-21] MEDS ORDERED: Lidocaine -MPF 2% 5 ML VIAL ONE (14:51)
[2021-07-21] MEDS ORDERED: Albumin Human 5% 0 GM/0 ML IV.SOLN ONE (14:51)
[2021-07-21] MEDS ORDERED: *HR* FentaNYL (PF) 100 MCG/2 ML VIAL ONE (14:51)
[2021-07-21] MEDS ORDERED: *HR* Rocuronium Bromide 50 MG/5 ML VIAL ONE ×2 (14:51→16:00)
[2021-07-21] MEDS ORDERED: Lidocaine HCL 4 ML Topical Solution (Laryng-O-Jet Kit Sterile Pak) TP ONE (14:51)
[2021-07-21] MEDS ORDERED: *HR* Propofol 200 MG/20 ML VIAL IVP ONE (14:51)
[2021-07-21] MEDS ORDERED: NiCARdipine 2.5 MG/10 ML Syringe IVPB ONE (14:51)
[2021-07-21] MEDS ORDERED: Ondansetron 4 MG/2 ML VIAL ONE (14:51)
[2021-07-21] MEDS ORDERED: *HR* OxyCODONE Immed Rel 5 MG TABLET PO PRN ×2 (15:05→19:26)
[2021-07-21] MEDS ORDERED: Promethazine 6.25 MG in Water for inj. (sterile) 20 ML IVPB PRN ×2 (15:05→19:26)
[2021-07-21] MEDS ORDERED: *HR* HYDROmorphone PF 0.5 MG/0.5 ML SYRINGE IVP PRN ×2 (15:05→19:26)
[2021-07-21] MEDS ORDERED: *HR* HYDROMORPHONE 2 MG/ML VIAL ONE (16:47)
[2021-07-21] MEDS ORDERED: Albuterol 2.5 MG/3 ML NEBULIZER IH STA (17:51)
[2021-07-21] MEDS ORDERED: Albuterol 2.5 MG/3 ML NEBULIZER ONE (17:57)
[2021-07-21] MEDS ORDERED: *HR* HYDROcodone/Acet 5/325 mg TABLET PO PRN (18:00)
[2021-07-21] MEDS ORDERED: Nystatin POWDER 30 GM BOTTLE TP PRN ×2 (18:00→19:26)
[2021-07-21] MEDS ORDERED: Melatonin 3 MG TABLET PO PRN ×2 (18:00→19:26)
[2021-07-21] MEDS ORDERED: Artificial Tears SOLN 15 ML BOTTLE BOTH EYES PRN ×2 (18:00→19:26)
[2021-07-21] MEDS ORDERED: Sennosides 8.6 MG TABLET PO PRN ×2 (18:00→19:26)
[2021-07-21] MEDS ORDERED: tiZANidine 4 MG TABLET PO PRN (18:00)
[2021-07-21] MEDS: Budesonide/Formoterol 160/4.5 1 PUFF INH IH SCH (20:43)
[2021-07-21] MEDS ORDERED: QUEtiapine Fumarate 25 MG TABLET PO SCH (21:00)
[2021-07-21] MEDS ORDERED: Primidone 50 MG TABLET PO SCH (21:00)
[2021-07-21] MEDS ORDERED: Mirtazapine 15 MG TABLET PO SCH (21:00)
[2021-07-21] MEDS: QUEtiapine Fumarate 25 MG TABLET PO SCH (21:24)
[2021-07-21] MEDS: Primidone 50 MG TABLET PO SCH (21:24)
[2021-07-21] MEDS: Mirtazapine 15 MG TABLET PO SCH (21:24)
[2021-07-21] MEDS: *HR* HYDROcodone/Acet 5/325 mg TABLET PO PRN (21:24)
[2021-07-21] MEDS: Gabapentin 100 MG CAPSULE PO SCH (21:24)
[2021-07-21] MEDS: 0.9 % Sodium Chloride 1,000 ML IVC SCH (21:25)
[2021-07-21] MEDS: ceFAZolin 3,000 MG in 0.9 % Sodium Chloride 100 ML IVPB SCH (21:26)
[2021-07-21] MEDS: Heparin 25,000UNIT/250ML 1/2NS 25,000 UNIT/250 ML IV.SOLN IVC SCH (22:30)
[2021-07-22 04:05] LABS: Basophils % 0.1 %; Hematocrit 33.6 % (35.3-44.9); Hemoglobin 9.8 g/dL (11.5-15.4); Immature Granulocytes % 0.3 % (0-4); Lymphocytes % 9.5 %; Mean Corpuscular HGB Conc 29.2 g/dL (31.6-35.5); Mean Corpuscular Volume 78.7 fL (83.0-100.0); Mean Platelet Volume 9.7 fL (9.4-12.4); Monocytes # 0.4 K/mcL (0.0-1.3); Monocytes % 4.2 %; Neutrophils # 8.7 K/mcL (1.6-8.9); Platelet Count 227 K/mcL (140-400); Red Blood Count 4.27 M/mcL (3.82-4.97); Red Cell Distribution Width 19.1 % (11.5-14.5); Segmented Neutrophils % 85.9 %; White Blood Count 10.1 K/mcL (4.3-11.1)
[2021-07-22 04:43] LABS: Estimated Average Glucose 117 mg/dl; Hemoglobin A1C 5.7 %
[2021-07-22 04:44] LABS: Albumin 3.5 g/dL (3.5-5.7); Albumin/Globulin Ratio 1.2 (1.1-2.2); Bilirubin,Total 0.2 mg/dL (0.3-1.0); Calcium 8.8 mg/dL (8.6-10.3); Globulin 2.9 g/dL (2.4-3.5); Potassium 6.1 mEq/L (3.5-5.1); Total Protein 6.4 g/dL (6.4-8.9)
[2021-07-22] MEDS: ceFAZolin 3,000 MG in 0.9 % Sodium Chloride 100 ML IVPB SCH ×2 (05:31→18:34)
[2021-07-22] MEDS: 0.9 % Sodium Chloride 1,000 ML IVC SCH ×3 (05:34→23:16)
[2021-07-22] MEDS ORDERED: Insulin LISPRO 300 UNITS/3 ML VIAL SUBQ ONE (05:35)
[2021-07-22] MEDS ORDERED: *HR* Dextrose 50 % in Water (Syg) 50 ML SYRINGE IVP ONE (05:36)
[2021-07-22] MEDS ORDERED: Insulin Human Regular 10 UNIT in 0.9 % Sodium Chloride 10 ML IV ONE (05:38)
[2021-07-22] MEDS ORDERED: Tiotropium 10 INH DOSE IH ONE (07:17)
[2021-07-22] MEDS: Tiotropium 10 INH DOSE IH SCH (07:28)
[2021-07-22] MEDS: Budesonide/Formoterol 160/4.5 1 PUFF INH IH SCH ×2 (07:28→19:55)
[2021-07-22] MEDS ORDERED: Calcium Gluconate 1gm/50mL 1 GM/50 ML BAG IVPB ONE (07:38)
[2021-07-22] MEDS: Gabapentin 100 MG CAPSULE PO SCH ×3 (08:34→19:44)
[2021-07-22] MEDS: Aspirin Enteric Coated 81 MG Tablet PO SCH (08:34)
[2021-07-22] MEDS: DilTIAZem CD (24hr) 120 MG CAP.ER.24H PO SCH (08:35)
[2021-07-22] MEDS ORDERED: Famotidine 20 MG TABLET PO SCH ×2 (09:00)
[2021-07-22 10:38] LABS: INR 1.3
[2021-07-22] MEDS: *HR* HYDROcodone/Acet 5/325 mg TABLET PO PRN (11:33)
[2021-07-22 12:58] LABS: Calcium 9.2 mg/dL (8.6-10.3); Potassium 5.1 mEq/L (3.5-5.1)
[2021-07-22] MEDS: Heparin 25,000UNIT/250ML 1/2NS 25,000 UNIT/250 ML IV.SOLN IVC SCH (17:11)
[2021-07-22] MEDS ORDERED: Warfarin perPT PO PRN (18:00)
[2021-07-22] MEDS ORDERED: *HR* Warfarin 5 MG TABLET PO ONE (18:00)
[2021-07-22] MEDS: QUEtiapine Fumarate 25 MG TABLET PO SCH (19:44)
[2021-07-22] MEDS: Primidone 50 MG TABLET PO SCH (19:44)
[2021-07-22] MEDS: Mirtazapine 15 MG TABLET PO SCH (19:45)
[2021-07-22] MEDS ORDERED: Benzonatate 100 MG CAPSULE PO PRN (20:17)
[2021-07-23] MEDS: *HR* HYDROcodone/Acet 5/325 mg TABLET PO PRN ×2 (01:29→15:23)
[2021-07-23 08:09] LABS: Basophils % 0.4 %; Immature Granulocytes % 0.4 % (0-4); Red Cell Distribution Width 19.3 % (11.5-14.5)
[2021-07-23 08:11] LABS: Eosinophils % 0.1 %; Hematocrit 30.6 % (35.3-44.9); Hemoglobin 8.9 g/dL (11.5-15.4); Lymphocytes % 21.5 %; Mean Corpuscular HGB Conc 29.1 g/dL (31.6-35.5); Mean Corpuscular Hemoglobin 23.3 pg (28.0-33.3); Mean Corpuscular Volume 80.1 fL (83.0-100.0); Monocytes # 0.7 K/mcL (0.0-1.3); Monocytes % 6.9 %; Platelet Count 238 K/mcL (140-400); Red Blood Count 3.82 M/mcL (3.82-4.97); Segmented Neutrophils % 70.7 %; White Blood Count 9.4 K/mcL (4.3-11.1)
[2021-07-23 08:13] LABS: Neutrophils # 6.7 K/mcL (1.6-8.9)
[2021-07-23 08:16] LABS: INR 1.3; Prothrombin Time 14.3 Seconds (9.4-12.1)
[2021-07-23] MEDS: Budesonide/Formoterol 160/4.5 1 PUFF INH IH SCH ×2 (08:24→21:30)
[2021-07-23] MEDS: Tiotropium 10 INH DOSE IH SCH (08:29)
[2021-07-23 08:33] LABS: Calcium 8.7 mg/dL (8.6-10.3); Potassium 4.8 mEq/L (3.5-5.1)
[2021-07-23 09:05] LABS: Platelet Estimate Normal (Normal); Reactive Lymphocytes Present (Not Present)
[2021-07-23 09:06] LABS: Anisocytosis 1+ (Not Present); Hypochromasia Present (Not Present); Microcytosis Present (Not Present); Poikilocytosis 1+ (Not Present)
[2021-07-23] MEDS: Gabapentin 100 MG CAPSULE PO SCH ×3 (09:11→20:02)
[2021-07-23] MEDS: Aspirin Enteric Coated 81 MG Tablet PO SCH (09:11)
[2021-07-23] MEDS: tiZANidine 4 MG TABLET PO PRN (09:11)
[2021-07-23] MEDS: DilTIAZem CD (24hr) 120 MG CAP.ER.24H PO SCH (09:11)
[2021-07-23 10:17] LABS: Amphetamine Screen,Urine Negative ng/mL (Cutoff=1000); Barbiturate Screen,Urine Negative ng/mL (Cutoff=200); Benzodiazepines Screen,Urine Negative ng/mL (Cutoff=200); Cannabinoid Screen,Urine Negative ng/mL (Cutoff = 50); Cocaine Screen,Urine Negative ng/mL (Cutoff= 300); Opiate Screen,Urine Positive ng/mL (Cutoff=300); Phencyclidine Screen,Urine Negative ng/mL (Cutoff=25)
[2021-07-23] MEDS: 0.9 % Sodium Chloride 1,000 ML IVC SCH ×2 (10:45→21:24)
[2021-07-23] MEDS: Heparin 25,000UNIT/250ML 1/2NS 25,000 UNIT/250 ML IV.SOLN IVC SCH (10:45)
[2021-07-23] MEDS ORDERED: *HR* Warfarin 5 MG TABLET PO ONE (18:00)
[2021-07-23] MEDS: Mirtazapine 15 MG TABLET PO SCH (20:00)
[2021-07-23] MEDS: QUEtiapine Fumarate 25 MG TABLET PO SCH (20:01)
[2021-07-23] MEDS: Primidone 50 MG TABLET PO SCH (20:02)
[2021-07-24 05:22] LABS: Basophils % 0.5 %; Eosinophils # 0.1 K/mcL (0.0-0.6); Eosinophils % 0.8 %; Hematocrit 32.4 % (35.3-44.9); Hemoglobin 9.7 g/dL (11.5-15.4); Immature Granulocytes % 0.4 % (0-4); Lymphocytes # 2.2 K/mcL (0.6-4.6); Lymphocytes % 28.2 %; Mean Corpuscular HGB Conc 29.9 g/dL (31.6-35.5); Mean Corpuscular Hemoglobin 23.4 pg (28.0-33.3); Mean Corpuscular Volume 78.1 fL (83.0-100.0); Monocytes # 0.6 K/mcL (0.0-1.3); Monocytes % 7.4 %; Neutrophils # 4.9 K/mcL (1.6-8.9); Platelet Count 258 K/mcL (140-400); Red Blood Count 4.15 M/mcL (3.82-4.97); Red Cell Distribution Width 19.4 % (11.5-14.5); Segmented Neutrophils % 62.7 %; White Blood Count 7.8 K/mcL (4.3-11.1)
[2021-07-24 05:28] LABS: INR 1.2; Prothrombin Time 13.6 Seconds (9.4-12.1)
[2021-07-24 05:42] LABS: Calcium 8.8 mg/dL (8.6-10.3); Potassium 4.8 mEq/L (3.5-5.1)
[2021-07-24] MEDS: *HR* Enoxaparin 120 MG/0.8 ML SYRINGE SQ SCH ×2 (06:36→17:16)
[2021-07-24] MEDS: Budesonide/Formoterol 160/4.5 1 PUFF INH IH SCH ×2 (07:38→21:06)
[2021-07-24] MEDS: Tiotropium 10 INH DOSE IH SCH (07:38)
[2021-07-24] MEDS: 0.9 % Sodium Chloride 1,000 ML IVC SCH (08:00)
[2021-07-24] MEDS: Famotidine 20 MG TABLET PO SCH (08:02)
[2021-07-24] MEDS: Aspirin Enteric Coated 81 MG Tablet PO SCH (08:02)
[2021-07-24] MEDS: DilTIAZem CD (24hr) 120 MG CAP.ER.24H PO SCH (08:02)
[2021-07-24] MEDS: tiZANidine 4 MG TABLET PO PRN (08:02)
[2021-07-24] MEDS: Gabapentin 100 MG CAPSULE PO SCH ×3 (08:02→19:59)
[2021-07-24] MEDS ORDERED: Famotidine 20 MG TABLET PO SCH (09:00)
[2021-07-24] MEDS ORDERED: *HR* Warfarin 7.5 MG TABLET PO ONE (18:00)
[2021-07-24] MEDS: Mirtazapine 15 MG TABLET PO SCH (19:58)
[2021-07-24] MEDS: Primidone 50 MG TABLET PO SCH (19:59)
[2021-07-24] MEDS: QUEtiapine Fumarate 25 MG TABLET PO SCH (20:00)
[2021-07-24] MEDS: *HR* HYDROcodone/Acet 5/325 mg TABLET PO PRN (23:39)
[2021-07-25 01:55] LABS: Basophils # 0.1 K/mcL (0.0-0.2); Basophils % 0.7 %; Eosinophils # 0.1 K/mcL (0.0-0.6); Eosinophils % 1.2 %; Hematocrit 31.2 % (35.3-44.9); Hemoglobin 9.3 g/dL (11.5-15.4); Immature Granulocytes % 0.4 % (0-4); Lymphocytes # 2.2 K/mcL (0.6-4.6); Lymphocytes % 26.3 %; Mean Corpuscular HGB Conc 29.8 g/dL (31.6-35.5); Mean Corpuscular Hemoglobin 23.3 pg (28.0-33.3); Mean Platelet Volume 9.9 fL (9.4-12.4); Monocytes # 0.7 K/mcL (0.0-1.3); Monocytes % 8.4 %; Neutrophils # 5.2 K/mcL (1.6-8.9); Platelet Count 268 K/mcL (140-400); Red Cell Distribution Width 19.5 % (11.5-14.5); White Blood Count 8.3 K/mcL (4.3-11.1)
[2021-07-25 02:12] LABS: Calcium 8.9 mg/dL (8.6-10.3); Potassium 4.4 mEq/L (3.5-5.1)
[2021-07-25 02:20] LABS: INR 1.3; Prothrombin Time 14.3 Seconds (9.4-12.1)
[2021-07-25] MEDS: *HR* Enoxaparin 120 MG/0.8 ML SYRINGE SQ SCH (04:59)
[2021-07-25] MEDS: Aspirin Enteric Coated 81 MG Tablet PO SCH (10:02)
[2021-07-25] MEDS: Famotidine 20 MG TABLET PO SCH (10:04)
[2021-07-25] MEDS: Gabapentin 100 MG CAPSULE PO SCH (10:04)
[2021-07-25] MEDS: tiZANidine 4 MG TABLET PO PRN (10:04)
[2021-07-25] MEDS: DilTIAZem CD (24hr) 120 MG CAP.ER.24H PO SCH (10:04)
[2021-07-25] MEDS: Budesonide/Formoterol 160/4.5 1 PUFF INH IH SCH (10:59)
[2021-07-25] MEDS: Tiotropium 10 INH DOSE IH SCH (11:00)
[2021-07-25 11:39] VITALS: BP 144/86; PULSE 75; TEMP 97.7; O2SAT 94
[2021-07-25] MEDS: *HR* HYDROcodone/Acet 5/325 mg TABLET PO PRN (12:05)
[2021-07-25] MEDS ORDERED: *HR* Warfarin 7.5 MG TABLET PO ONE (18:00)
== END 2021-07-25 14:00 | disposition home health service (06) | DRG 253 ==
LOC: 3BNU 22:50 → EMEROOARM 22:50 → 3BNU 07-21 14:37 → 2NNU 07-21 15:27 → SUATTDRO 07-21 15:44 → 2ANU 07-23 05:01
PROVIDERS: ADMIT Internal Medicine; ATTEND Internal Medicine

== ENCOUNTER 2022-04-19 16:44 | Inpatient (IN) ==
[2022-04-19] MEDS ORDERED: *HR* Metoprolol 5 MG/5 ML VIAL IVP ONE (18:19)
[2022-04-19 18:42] LABS: Basophils # 0.1 K/mcL (0.0-0.2); Basophils % 0.5 %; Eosinophils # 0.1 K/mcL (0.0-0.6); Eosinophils % 0.5 %; Hematocrit 45.1 % (35.3-44.9); Hemoglobin 14.2 g/dL (11.5-15.4); Immature Granulocytes % 0.3 % (0-4); Lymphocytes # 2.5 K/mcL (0.6-4.6); Lymphocytes % 19.3 %; Mean Corpuscular HGB Conc 31.5 g/dL (31.6-35.5); Mean Corpuscular Hemoglobin 27.7 pg (28.0-33.3); Mean Corpuscular Volume 87.9 fL (83.0-100.0); Mean Platelet Volume 9.7 fL (9.4-12.4); Monocytes # 0.7 K/mcL (0.0-1.3); Monocytes % 5.3 %; Neutrophils # 9.5 K/mcL (1.6-8.9); Platelet Count 374 K/mcL (140-400); Red Blood Count 5.13 M/mcL (3.82-4.97); Red Cell Distribution Width 15.9 % (11.5-14.5); Segmented Neutrophils % 74.1 %; White Blood Count 12.8 K/mcL (4.3-11.1)
[2022-04-19 18:51] LABS: BUN/Creatinine Ratio 12 (6-26); Blood Urea Nitrogen 21 mg/dL (8-23); Calcium 9.5 mg/dL (8.6-10.3); Carbon Dioxide 25 mEq/L (23-29); Chloride 102 mEq/L (98-107); Glucose 132 mg/dL (70-105); INR 1.7; Osmolality,Calculated 287 (280-300); Potassium 3.8 mEq/L (3.5-5.1); Sodium 136 mEq/L (136-145); Troponin I < 0.03 ng/mL (< 0.04); eGFR For African Americans 36 (> 60); eGFR For Non-African Americans 30 (> 60)
[2022-04-19 18:53] LABS: Activated Partial Thrombo Time 38.7 Seconds (26.0-36.0)
[2022-04-19] MEDS ORDERED: 0.9 % Sodium Chloride 1,000 ML IVC ONE (21:06)
[2022-04-19] MEDS: DilTIAZem 50 MG/50 ML IV.SOLN IVC SCH (21:59)
[2022-04-19] MEDS ORDERED: Naloxone 0.4 MG/ML INJ IVP PRN (23:38)
[2022-04-19] MEDS ORDERED: Ondansetron ODT 4 MG TAB.RAPDIS SL PRN (23:38)
[2022-04-19] MEDS ORDERED: Melatonin 3 MG TABLET PO PRN (23:38)
[2022-04-19] MEDS ORDERED: Perflutren Lipid Microsphere 1.3 ML in 0.9 % Sodium Chloride 8.7 ML IVP PRN (23:40)
[2022-04-19] MEDS ORDERED: tiZANidine 4 MG TABLET PO PRN (23:41)
[2022-04-20] MEDS ORDERED: Perflutren Lipid Microsphere 1.3 ML in 0.9 % Sodium Chloride 8.7 ML IVP PRN (01:11)
[2022-04-20 06:39] LABS: INR 1.6; Prothrombin Time 17.5 Seconds (9.4-12.1)
[2022-04-20 06:41] LABS: Basophils # 0.1 K/mcL (0.0-0.2); Basophils % 0.5 %; Eosinophils # 0.1 K/mcL (0.0-0.6); Eosinophils % 0.5 %; Hematocrit 40.4 % (35.3-44.9); Hemoglobin 12.9 g/dL (11.5-15.4); Immature Granulocytes % 0.3 % (0-4); Lymphocytes % 20.5 %; Mean Corpuscular HGB Conc 31.9 g/dL (31.6-35.5); Mean Corpuscular Hemoglobin 27.8 pg (28.0-33.3); Mean Corpuscular Volume 87.1 fL (83.0-100.0); Mean Platelet Volume 9.7 fL (9.4-12.4); Monocytes # 0.6 K/mcL (0.0-1.3); Platelet Count 282 K/mcL (140-400); Red Blood Count 4.64 M/mcL (3.82-4.97); Red Cell Distribution Width 16.4 % (11.5-14.5); Segmented Neutrophils % 72.2 %; White Blood Count 9.7 K/mcL (4.3-11.1)
[2022-04-20 06:57] LABS: Albumin 3.6 g/dL (3.5-5.7); Albumin/Globulin Ratio 1.4 (1.1-2.2); Bilirubin,Total 0.3 mg/dL (0.3-1.0); Calcium 8.9 mg/dL (8.6-10.3); Globulin 2.6 g/dL (2.4-3.5); Magnesium 2.1 mg/dL (1.6-2.6); Phosphorous 3.8 mg/dL (2.7-4.5); Potassium 3.7 mEq/L (3.5-5.1); Total Protein 6.2 g/dL (6.4-8.9)
[2022-04-20] MEDS ORDERED: Tiotropium 10 INH DOSE IH ONE (07:17)
[2022-04-20] MEDS: DilTIAZem 50 MG/50 ML IV.SOLN IVC SCH (07:24)
[2022-04-20] MEDS: Tiotropium 10 INH DOSE IH SCH (07:27)
[2022-04-20] MEDS: Budesonide/Formoterol 160/4.5 1 PUFF INH IH SCH ×2 (07:27→20:11)
[2022-04-20] MEDS: Gabapentin 100 MG CAPSULE PO SCH ×3 (08:40→19:35)
[2022-04-20] MEDS: DilTIAZem CD (24hr) 240 MG CAP.ER.24H PO SCH (08:40)
[2022-04-20] MEDS: *HR* HYDROcodone/Acet 5/325 mg TABLET PO PRN ×2 (09:16→19:35)
[2022-04-20] MEDS ORDERED: 0.9 % Sodium Chloride 500 ML IVC ONE (11:46)
[2022-04-20] MEDS ORDERED: 0.9 % Sodium Chloride 500 ML ONE (11:49)
[2022-04-20] MEDS: *HR* Enoxaparin 120 MG/0.8 ML SYRINGE SQ SCH (17:09)
[2022-04-20] MEDS ORDERED: Warfarin perPT PO PRN ×2 (18:00)
[2022-04-20] MEDS ORDERED: *HR* Warfarin 7.5 MG TABLET PO ONE (18:00)
[2022-04-20] MEDS: Mirtazapine 15 MG TABLET PO SCH (19:34)
[2022-04-21 03:32] LABS: INR 1.3; Prothrombin Time 14.9 Seconds (9.4-12.1)
[2022-04-21] MEDS: *HR* Enoxaparin 120 MG/0.8 ML SYRINGE SQ SCH (05:36)
[2022-04-21] MEDS: DilTIAZem CD (24hr) 240 MG CAP.ER.24H PO SCH (07:26)
[2022-04-21] MEDS: *HR* HYDROcodone/Acet 5/325 mg TABLET PO PRN ×2 (07:26→19:20)
[2022-04-21] MEDS: Gabapentin 100 MG CAPSULE PO SCH ×2 (07:26→15:05)
[2022-04-21] MEDS: Tiotropium 10 INH DOSE IH SCH (07:55)
[2022-04-21] MEDS: Budesonide/Formoterol 160/4.5 1 PUFF INH IH SCH ×2 (07:56→20:29)
[2022-04-21] MEDS ORDERED: *HR* Heparin 5,000 UNIT/ML VIAL IVP PRN (15:16)
[2022-04-21] MEDS ORDERED: *HR* Heparin 5,000 UNIT/ML VIAL IVP ONE (15:16)
[2022-04-21] MEDS: Heparin 25,000UNIT/250ML 1/2NS 25,000 UNIT/250 ML IV.SOLN IVC SCH (16:15)
[2022-04-21 16:17] LABS: Hematocrit 40.5 % (35.3-44.9); Hemoglobin 12.4 g/dL (11.5-15.4); Mean Corpuscular HGB Conc 30.6 g/dL (31.6-35.5); Mean Corpuscular Hemoglobin 27.6 pg (28.0-33.3); Mean Platelet Volume 9.7 fL (9.4-12.4); Platelet Count 273 K/mcL (140-400); Red Cell Distribution Width 16.1 % (11.5-14.5)
[2022-04-21 16:25] LABS: Heparin anti-factor XA UFH 0.79 IU/mL (0.30-0.70)
[2022-04-21 16:26] LABS: INR 1.3; Prothrombin Time 14.9 Seconds (9.4-12.1)
[2022-04-21] MEDS ORDERED: *HR* Warfarin 10 MG TABLET PO ONE (18:00)
[2022-04-21] MEDS: QUEtiapine Fumarate 25 MG TABLET PO SCH (20:05)
[2022-04-21] MEDS: Mirtazapine 15 MG TABLET PO SCH (20:05)
[2022-04-21] MEDS: Gabapentin 300 MG CAPSULE PO SCH (20:05)
[2022-04-22 04:15] LABS: INR 1.3
[2022-04-22] MEDS: Gabapentin 300 MG CAPSULE PO SCH ×3 (07:39→20:09)
[2022-04-22] MEDS: DilTIAZem CD (24hr) 240 MG CAP.ER.24H PO SCH (07:39)
[2022-04-22] MEDS: Aspirin Enteric Coated 81 MG Tablet PO SCH (07:39)
[2022-04-22] MEDS: Heparin 25,000UNIT/250ML 1/2NS 25,000 UNIT/250 ML IV.SOLN IVC SCH ×2 (07:40→23:24)
[2022-04-22] MEDS: Tiotropium 10 INH DOSE IH SCH (07:42)
[2022-04-22] MEDS: Budesonide/Formoterol 160/4.5 1 PUFF INH IH SCH ×2 (07:42→20:05)
[2022-04-22] MEDS: *HR* HYDROcodone/Acet 5/325 mg TABLET PO PRN ×2 (07:50→20:08)
[2022-04-22] MEDS ORDERED: Furosemide 20 MG TABLET PO SCH (09:00)
[2022-04-22] MEDS: Ciprofloxacin/Dex *EAR* Susp 7.5 ML BOTTLE RIGHT EAR SCH ×2 (09:29→20:11)
[2022-04-22 12:46] LABS: Basophils # 0.1 K/mcL (0.0-0.2); Basophils % 0.6 %; Eosinophils # 0.1 K/mcL (0.0-0.6); Eosinophils % 0.9 %; Hematocrit 40.5 % (35.3-44.9); Hemoglobin 12.6 g/dL (11.5-15.4); Immature Granulocytes % 0.1 % (0-4); Lymphocytes # 1.8 K/mcL (0.6-4.6); Lymphocytes % 20.4 %; Mean Corpuscular HGB Conc 31.1 g/dL (31.6-35.5); Mean Corpuscular Hemoglobin 27.6 pg (28.0-33.3); Mean Corpuscular Volume 88.8 fL (83.0-100.0); Mean Platelet Volume 9.6 fL (9.4-12.4); Monocytes # 0.5 K/mcL (0.0-1.3); Monocytes % 6.2 %; Neutrophils # 6.3 K/mcL (1.6-8.9); Platelet Count 277 K/mcL (140-400); Red Blood Count 4.56 M/mcL (3.82-4.97); Red Cell Distribution Width 16.3 % (11.5-14.5); Segmented Neutrophils % 71.8 %; White Blood Count 8.7 K/mcL (4.3-11.1)
[2022-04-22 13:07] LABS: Calcium 9.2 mg/dL (8.6-10.3); Potassium 3.9 mEq/L (3.5-5.1)
[2022-04-22] MEDS ORDERED: *HR* Warfarin 10 MG TABLET PO ONE (18:00)
[2022-04-22] MEDS: QUEtiapine Fumarate 25 MG TABLET PO SCH (20:08)
[2022-04-22] MEDS: Furosemide 40 MG/4 ML VIAL IVP SCH (20:08)
[2022-04-22] MEDS: Mirtazapine 15 MG TABLET PO SCH (20:08)
[2022-04-22] MEDS: Nystatin POWDER 30 GM BOTTLE TP SCH (20:11)
[2022-04-23 04:05] LABS: Heparin anti-factor XA UFH 0.18 IU/mL (0.30-0.70)
[2022-04-23 04:06] LABS: INR 1.6; Prothrombin Time 17.7 Seconds (9.4-12.1)
[2022-04-23] MEDS: *HR* Heparin 5,000 UNIT/ML VIAL IVP PRN ×2 (04:18→11:11)
[2022-04-23] MEDS: Budesonide/Formoterol 160/4.5 1 PUFF INH IH SCH (07:39)
[2022-04-23] MEDS: Tiotropium 10 INH DOSE IH SCH (07:40)
[2022-04-23] MEDS: Gabapentin 300 MG CAPSULE PO SCH (08:50)
[2022-04-23] MEDS: Furosemide 40 MG/4 ML VIAL IVP SCH (08:50)
[2022-04-23] MEDS: Aspirin Enteric Coated 81 MG Tablet PO SCH (08:50)
[2022-04-23] MEDS: DilTIAZem CD (24hr) 240 MG CAP.ER.24H PO SCH (08:50)
[2022-04-23] MEDS: Nystatin POWDER 30 GM BOTTLE TP SCH (08:51)
[2022-04-23] MEDS: Ciprofloxacin/Dex *EAR* Susp 7.5 ML BOTTLE RIGHT EAR SCH (08:51)
[2022-04-23] MEDS: *HR* HYDROcodone/Acet 5/325 mg TABLET PO PRN (08:53)
[2022-04-23 10:38] VITALS: BP 104/56; PULSE 97; TEMP 97.7; O2SAT 95
[2022-04-23] MEDS ORDERED: *HR* Warfarin 10 MG TABLET PO ONE (18:00)
== END 2022-04-23 13:22 | disposition short-term general hospital (02) | DRG 309 ==
LOC: 3BNU 16:44 → EMEROOARM 16:44 → SUATTDRO 22:31 → 3BNU 22:45
PROVIDERS: ADMIT Internal Medicine; ATTEND Registered Nurse